=== PATIENT | female | born 1960 | race Caucasian/White ===

== ENCOUNTER → 2017-04-12 | Day surgery (SDC) | payer OTHER ==
[~2017-04-12] VITALS: Ht 160 cm; Wt 92.5 kg
--- NOTE | 2017-04-12 08:34 | Operative Report ---
Operative/Inv Procedure Report Surgery Date: 04/12/17 Name of Procedure: R renal ESWL Pre-Operative Diagnosis: R renal calculus Post-Operative Diagnosis: same Estimated Blood Loss: scant Surgeon/Injection Molder: Shahab Vasquez MD Anesthesia: moderate sedation Drains: none Specimens: none Complications: none Condition: stable Operative Indication: 1.4 cm stone in lower pole of R kidney Operative/Procedure Note Note: The patient was taken to the lithotripsy room and identified. She was placed in supine position on the lithotripsy table. A timeout was executed appropriately with the patient awake. Using ultrasound the stone in the lower pole of the right kidney was localized to the F2 focal point. The patient was then given intravenous sedation. Treatment was then begun. A total of 2500 shocks were given. At a low energy level and then increased to the maximum. Patient tolerated the procedure well and the patient was taken to recovery in stable condition. Findings: 1.4 cm stone in lower pole of R kidney Discharge Disposition: Same Day Admissions
== END ==
LOC: STS 02:37
DX: N20.0 Calculus of kidney (principal); E03.9 Hypothyroidism, unspecified
CPT/HCPCS: J0690; J2250